=== PATIENT | female | born 1945 | race Caucasian/White ===

== ENCOUNTER 2020-07-20 19:24 | Emergency (ER) | payer MEDICAID, MEDICARE ==
[~2020-07-20] VITALS: Ht 154.9 cm; Wt 68.0 kg
[2020-07-20] MEDS ORDERED: ALBU1.25 NEB (19:47)
[2020-07-20] MEDS ORDERED: METO25TA2 PO (19:47)
[2020-07-20] MEDS ORDERED: LISI-167 PO (19:47)
[2020-07-20] MEDS ORDERED: BLOO-377 SQ (19:47)
[2020-07-20] MEDS ORDERED: CYCL5TAB PO (19:47)
[2020-07-20] MEDS ORDERED: OMEP-110 PO (19:47)
[2020-07-20] MEDS ORDERED: METF500T27 PO (19:47)
[2020-07-20] MEDS ORDERED: IBUP-1222 PO (19:47)
[2020-07-20] MEDS ORDERED: ALBUTEROL-IPRATROPIUM MDI INH INH ONE (20:00)
--- NOTE | 2020-07-20 20:09 | NUR ---
Pt here for medication refill. Pt medicated per emar and ambulated to restroom. VSS
--- NOTE | 2020-07-20 20:11 | NUR ---
mED REQUESTED FROM PHARMACY
[2020-07-20 20:40] VITALS: BP 161/74
--- NOTE | 2020-07-20 20:41 | NUR ---
Pt given combiven inhaler.
--- NOTE | 2020-07-20 20:42 | NUR ---
Patient/Caregiver given discharge instructions and they have confirmed that they understand the instructions. Patient ambulatory with steady gait.
== END 2020-07-20 20:45 | disposition home or self-care (01) ==
LOC: ED 19:50
DX: J44.9 Chronic obstructive pulmonary disease, unspecified (principal); R94.31 Abnormal electrocardiogram [ECG] [EKG]; I10 Essential (primary) hypertension; Z76.0 Encounter for issue of repeat prescription; E11.9 Type 2 diabetes mellitus without complications; E78.00 Pure hypercholesterolemia, unspecified; Z87.891 Personal history of nicotine dependence
CPT/HCPCS: 93005; 99283